=== PATIENT | female | born 1980 | race Hispanic/Latino ===

== ENCOUNTER 2022-06-07 10:56 | Observation (INO) | payer BC, SELFPAY ==
[2022-06-07] VITALS (21 sets, daily range): BP systolic 106–119; BP diastolic 43–70; PULSE 62–82; RESP 14–20; TEMP 35.9–36.6; O2SAT 100; BMI 23.8
--- NOTE | ~2022-06-07 | US_ITS ---
EXAMINATION: US pelvic complete DATE: 06/08/2022 11:08 INDICATION: Metrorrhagia TECHNIQUE: Multiple transabdominal sonographic images of the pelvis were obtained. COMPARISON: None. FINDINGS: The alexis flexed uterus measures 9.3 x 5.0 x 5.1 cm. The endometrial complex measures 3-4 mm in thi ckness. The right ovary measures 3.3 x 2.5 x 2.2 cm cm. 9 mm anechoic right adnexal cyst/follicle. Th e left ovary is not clearly visualized. There is however 4.3 x 3.7 x 3.7 cm anechoic cyst at the left adnexa. Vascular flow identified in both the right ovary and at the periphery of the presumptive lef t ovarian cyst. There is no free fluid in the pelvis. IMPRESSION: 1. Alexis flexed uterus with normal 3-4 mm thick endometrial complex. Reviewed, dictated and finalized at location A.
--- NOTE | ~2022-06-07 | CT_ITS ---
EXAMINATION: CT abdomen pelvis wo con DATE: 06/08/2022 18:27 INDICATION: Right flank pain and hematuria TECHNIQUE: Computed tomography (CT) of the abdomen and pelvis was performed without intravenous contr ast. Automated exposure control and iterative reconstruction technique were employed. The dose-length product was 322.78 mGy-cm. COMPARISON: None FINDINGS: Lung bases are clear. Heart size is normal. No pericardial or pleural effusion. Liver, gallbladder, p ancreas and bilateral adrenal glands are normal. Splenomegaly measuring 15.1 cm in craniocaudal lengt h. Left kidney is normal. A couple nonobstructing 1 mm stones in the mid and lower right kidney. No o ther urolithiasis, hydroureteronephrosis or perinephric/ureteral stranding. Large amount of stool sca ttered throughout the colon. Small bowel and appendix are normal. Bladder is normal. 4.2 cm and 1.5 c m left adnexal cyst. The uterus and right adnexa are unremarkable. No free intraperitoneal gas or flu id. No pathologically enlarged abdominal or pelvic lymphadenopathy. Bones are unremarkable. IMPRESSION: 1. A couple nonobstructing 1 mm right renal stones. No ureteral stones or hydronephrosis. 2. Nonspecific splenomegaly measuring 15.1 cm in maximal length. 3. Couple left adnexal cysts, the larger measuring 4.2 cm. Reviewed, dictated and finalized at location A. IMPRESSION: 1. A couple nonobstructing 1 mm right renal stones. No ureteral stones or hydro nephrosis. 2. Nonspecific splenomegaly measuring 15.1 cm in maximal length. 3. Couple left adnexal cysts, the larger measuring 4.2 cm.
[2022-06-07 11:23] LABS: Alanine Aminotransferase 18 U/L (6-35); Albumin Level 4.7 g/dL (3.5-5.1); Alkaline Phosphatase 70 U/L (38-126); Anion Gap 9 mmol/L (8-16); Aspartate Amino Transferase 19 U/L (14-36); Bilirubin,Total 0.9 mg/dL (0.2-1.3); Blood Urea Nitrogen 11 mg/dL (7-17); Calcium 8.5 mg/dL (8.4-10.2); Carbon Dioxide 23 mmol/L (22-30); Chloride 98 mmol/L (98-107); Estimated CRCL calculation 83 ml/min; Estimated Glomerular Filt Rate > 60; Glucose 269 mg/dL (65-110); Potassium 4.2 mmol/L (3.4-5.0); Sodium 130 mmol/L (137-145)
[2022-06-07 12:20] LABS: Basophils Percent Auto 0.8 % (0.2-1.2); Eosinophils Absolute Auto 0.1 K/mm3 (0-0.3); Eosinophils Percent Auto 1.6 % (0-4.4); Hematocrit 21.8 % (37.0-47.0); Immature Granulocyte Absolute 0.01 K/mm3 (0.00-0.031); Immature Granulocyte Percent A 0.3 % (0-0.5); Immature Platelet Fraction Pct 9.2 % (0.9-11.2); Lymphocytes Absolute Auto 1.43 K/mm3 (0.9-3.2); Lymphocytes Percent Auto 37.5 % (18.3-44.2); Mean Corpuscular HGB Conc 25.2 g/dl (32-36); Mean Corpuscular Hemoglobin 14.7 pg (26-34); Mean Corpuscular Volume 58.4 fl (80-100); Monocytes Absolute Auto 0.2 K/mm3 (0.1-0.6); Monocytes Percent Auto 5.2 % (2.6-8.5); Neutrophils Absolute Auto 2.1 K/mm3 (1.3-6.7); Neutrophils Percent Auto 54.6 % (45.5-73.1); Platelet Count Result 321 k/mm3 (150-375); Red Blood Count 3.73 M/mm3 (4.2-5.4); Red Cell Distribution Width 21.8 % (11.5-14.5)
[2022-06-07 12:23] LABS: Hemoglobin 5.5 g/dL (12.0-15.0)
[2022-06-07 12:24] LABS: White Blood Count 3.8 K/mm3 (4.5-10.0)
[2022-06-07 12:31] LABS: Anisocytosis 3+ (NORMAL); Hypochromasia 3+ (NORMAL); Microcytosis 3+ (NORMAL); Platelet Estimate Adequate (Adequate)
[2022-06-07 12:32] LABS: Ovalocytes 1+ (NORMAL); Schistocytes None Seen (NORMAL)
[2022-06-07 13:54] LABS: Immature Reticulocyte Fraction 15.3 % (3.0-15.9); Reticulocyte Hemoglobin Conten 13.6 pg (28.2-35.7); Reticulocyte Percent 1.61 % (0.7-4.3); Reticulocytes Absolute 0.06 M/mm3 (0.02-0.1)
[2022-06-07 14:18] LABS: Iron < 10 ug/dL (37-170)
[2022-06-07] MEDS: TUBING, BLOOD PLUM PUMP TUBING 1 EACH XX (14:26)
[2022-06-07] MEDS: SODIUM CHLORIDE 0.9% IV 250 ML 30 ML IV CONT (14:26)
[2022-06-07 14:28] LABS: Percent Iron Saturation 2 % (20-50)
--- NOTE | 2022-06-07 14:48 | ED.GENADULT ---
HPI - General Adult General Chief complaint: Recheck/Abnormal Lab/Rx Stated complaint: needs blood transfusion Time Seen by Provider: 06/07/22 13:05 History of Present Illness HPI narrative: Patient is a 42-year-old female who is Yi-speaking that presents to the ER for a blood transfusion. She reports she was told by her PCP that she had abnormal blood work and that she needed transfusion. Hemoglobin here is 5.5. Reports she has history of anemia requiring blood transfusions. She is supposed to be taking iron but has not been taking it. She reports she has heavy menstrual periods with her last one occurring 05/31/2022 and lasting for 5 to 6 days. She has had no syncope. No dizziness. She does have fatigue. Related Data Home Medications Medication Instructions Recorded Confirmed No Home Medications 06/07/22 06/07/22 Allergies Allergy/AdvReac Type Severity Reaction Status Date / Time No Known Allergies Allergy Verified 06/07/22 10:58 Review of Systems Review of Systems: All systems reviewed & are unremarkable except as noted in HPI and below Constitutional: Constitutional: Denies chills, Reports fatigue and Denies fever(s) ENT: Denies nasal congestion and Denies sore throat Cardiovascular: Cardiovascular: Denies chest pain, Denies rapid heart rate and Denies radiating jaw, neck or arm pain Respiratory: Respiratory: Denies cough and Denies dyspnea Genitourinary: Genitourinary: Denies abnormal vaginal bleeding and Denies pelvic pain Neurologic: Denies dizziness and Denies syncope [facility] Family History Family History (Updated 06/07/22 @ 17:48 by Cynthia Ceja LPN) Other Diabetes mellitus Social History Social History Smoking status: Never smoker Second hand tobacco smoke exposure: No Alcohol intake: never Substance use: never Substance use type: does not use Lack of Transportation: No Lack of Food: Never True Current Housing: I Have Housing Concerned About Future Housing: No Difficulty Paying Gas/Electric Bills: No Difficulty Paying for Meds: No Currently Unemployed: No Education: Don't Know Difficulty w/ Childcare or Family Care: No Spiritual care concerns: No Exam Narrative: GENERAL: Well-appearing, well-nourished, and in no acute distress. HEAD: Normocephalic, atraumatic. EYES: PERRL and EOMI. pale conjunctiva ENT: Mucous membranes moist. CHEST: Clear to auscultation. No respiratory distress. HEART: Regular rate and rhythm. Normal peripheral pulses. ABDOMEN: Soft, nontender, nondistended. EXTREMITIES: Normal range of motion. No edema. SKIN: Warm, dry, no rash. NEURO:Alert and oriented x3. PSYCH: Normal mood and affect. Course Course Emergency Course: 2 units of blood ordered. Symptoms felt to be iron deficiency related from chronic blood losses and lack of iron supplementation. She may require further evaluation by gynecology outpatient. Accepted by the hospitalist service. Patient stable. Patient understands treatment plan and lab results and is agreeable. Vital Signs Vital signs: Vital Signs Temperature 97.4 F L 06/07/22 11:00 Pulse Rate 82 06/07/22 11:00 Respiratory Rate 20 06/07/22 11:00 Blood Pressure 119/52 L 06/07/22 11:00 Pulse Oximetry 100 06/07/22 11:00 Oxygen Delivery Room Air 06/07/22 11:00 Temperature 97.5 F L 06/07/22 21:23 Pulse Rate 76 06/07/22 21:23 Respiratory Rate 16 06/07/22 21:23 Blood Pressure 109/62 06/07/22 21:23 Pulse Oximetry 100 06/07/22 21:23 Oxygen Delivery Room Air 06/07/22 18:10 Medical Decision Making Vital Signs Vital Signs: Vital Signs Temperature 97.4 F L 06/07/22 11:00 Pulse Rate 82 06/07/22 11:00 Respiratory Rate 20 06/07/22 11:00 Blood Pressure 119/52 L 06/07/22 11:00 Pulse Oximetry 100 06/07/22 11:00 Oxygen Delivery Room Air 06/07/22 11:00 Temperature 97.5 F L 06/07/22 21:23 Pulse Rate 76 06/07/22
[2022-06-07 14:54] LABS: Ferritin 2.61 ng/mL (6.24-137)
[2022-06-07 15:10] LABS: Folic Acid 11.4 ng/mL (2.76->20)
[2022-06-07 15:18] LABS: Appearance Urine Clear (Clear); Bacteria Urine None Seen /hpf; Bilirubin Urine Negative (Negative); Blood Urine 3+ (Negative); Color Urine Yellow (Yellow); Glucose Urine UA Negative (Negative); Ketones Urine Negative (Negative); Leukocyte Esterase Ur Trace LEU/UL (Negative); Nitrate Urine Negative (Negative); Non Pathogenic Casts 0-2; Protein Urine Negative (Negative); RBC Urine 0-2 /hpf (0-2); Specific Grav Ur 1.005 (1.001-1.035); Squamous Epithelial Cell Urine Few /hpf (Few); Urobilinogen Urine 0.2 mg/dL (<2.0); WBC Urine 0-5 /hpf; pH Urine 6.5 (5.0-9.0)
[2022-06-07 15:29] LABS: Add Urine Microscopic? YES
--- NOTE | 2022-06-07 17:33 | PC.NURSE ---
This patient, Ghazala Mon, was admitted to [facility] Surg Room 310-01. Patient/family oriented to hospital policies and general routines including ID bracelet, bed and alarms, visiting hours, pain management, procedures, bathroom and other care routines, personal items, smoking policy, room service/diet, and visiting hours. Information on how to activate the Rapid Response Team has been discussed. Patient/Family are encouraged to report perceived risks to care and to ask questions if they do not understand what they are told or what they should do.
[2022-06-07 20:08] LABS: Glucose Point of Care 273 mg/dl (65-105)
--- NOTE | 2022-06-07 22:18 | PM.IMHP ---
H&P: HPI History of Present Illness Date/Time: 06/07/22 17:30 Chief Complaint: Low hemoglobin. Narrative: This is a pleasant 42-year-old mainly Uzbek-speaking female who presented to the emergency department via private vehicle for evaluation of low hemoglobin. Patient provides the following history; her daughter helps translate on occasion. The patient has a history of heavy periods dating back many years and had previously been on iron however it does not sound as though she has been taking that on a routine basis. She was previously seen by a smog technician in [place] and was offered hysterectomy however she declined. For the past month or so she has become increasingly more fatigued and tired and the last couple of days she has been feeling lightheaded and dizzy upon standing. She had an appointment to establish care with a new PCP yesterday and she had some labs drawn. Today she was told that her hemoglobin was low and that she needed to come to the ER for transfusion. Hemoglobin/hematocrit on arrival were 5.5 and 21.8% respectively. Her labs were also significant for a random glucose of 273 and she has no known history of diabetes. She denies epistaxis, hematemesis, melena, hematochezia, and hematuria. She denies current vaginal bleeding. No blurry vision, polydipsia, or polyuria. No dysuria. No vaginal discharge. No exertional chest pain or shortness of breath. Review of Systems Review of Systems: Twelve systems were reviewed and are negative except for as per HPI. [facility] Past Medical History Medical History (Updated 06/07/22 @ 22:25 by Yessy Khan PA-C) Iron deficiency anemia Surgical History Surgical History (Updated 06/07/22 @ 22:22 by Yessy Khan PA-C) History of 3 sections History of ovarian cystectomy Family History Family History Other Diabetes mellitus Social History Social History (Updated 06/07/22 @ 22:23 by Yessy Khan PA-C) Social History: Surrogate medical decision maker: Pete Vallejo (spouse) or Jose Vallejo (daughter). Code status: Full code. Smoking status: Never smoker Second hand tobacco smoke exposure: No Alcohol intake: never Substance use: never Substance use type: does not use Lack of Transportation: No Lack of Food: Never True Current Housing: I Have Housing Concerned About Future Housing: No Difficulty Paying Gas/Electric Bills: No Difficulty Paying for Meds: No Currently Unemployed: No Education: Don't Know Difficulty w/ Childcare or Family Care: No Additional living arrangements comments: Lives with family in [place]. 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 Spiritual care concerns: No Meds Home Medications and Allergies Home Medications Medication Instructions Recorded Confirmed Type No Home Medications 06/07/22 06/07/22 History Allergies Allergy/AdvReac Type Severity Reaction Status Date / Time No Known Allergies Allergy Verified 06/07/22 10:58 Vital Signs Vital Signs - 24 hr 06/07/22 11:00 06/07/22 14:18 06/07/22 14:36 Temperature 97.4 F L 97.6 F 97.9 F Pulse Rate 82 66 65 Respiratory Rate 20 14 17 Blood Pressure 119/52 L 114/64 106/66 Pulse Oximetry 100 100 100 Oxygen Delivery Room Air 06/07/22 14:26 06/07/22 14:30 06/07/22 14:31 Temperature Pulse Rate 64 64 65 Respiratory Rate 15 16 16 Blood Pressure 106/66 Pulse Oximetry 100 100 100 Oxygen Delivery 06/07/22 14:45 06/07/22 14:46 06/07/22 15:00 Temperature Pulse Rate 63 63 66 Respiratory Rate 15 14 15 Blood Pressure 109/69 Pulse Oximetry 100 100 100 Oxygen Delivery 06/07/22 15:09 06/07/22 15:15 06/07/22 15:17 Temperature Pulse Rate 70 68 62 Respiratory Rate 17 18 17 Blood Pressure 108/63 108/43 L Pulse Oximetry 100 100 100 Oxygen Delivery 06/07/22 15:31 06/07/22 15:33 06/07/22 16:11
[2022-06-07 23:34] LABS: Hemoglobin A1C 7.5 % (<5.7)
[2022-06-07] MEDS: IRON SUCROSE COMPLEX 500 MG in SODIUM CHLORIDE 0.9% IV 250 ML 78.57 MG IVPB (23:53)
[2022-06-08 05:49] VITALS: BP 115/61; PULSE 65; RESP 16; TEMP 36.6; O2SAT 100
[2022-06-08 06:00] LABS: Hematocrit 26.8 % (37.0-47.0); Hemoglobin 7.5 g/dL (12.0-15.0); Immature Platelet Fraction Pct 9.2 % (0.9-11.2); Mean Corpuscular Hemoglobin 18.3 pg (26-34); Mean Corpuscular Volume 65.5 fl (80-100); Platelet Count Result 266 k/mm3 (150-375); Red Blood Count 4.09 M/mm3 (4.2-5.4); Red Cell Distribution Width 29.2 % (11.5-14.5); White Blood Count 3.8 K/mm3 (4.5-10.0)
[2022-06-08 06:09] LABS: Anion Gap 10 mmol/L (8-16); Blood Urea Nitrogen 9 mg/dL (7-17); Calcium 8.3 mg/dL (8.4-10.2); Carbon Dioxide 22 mmol/L (22-30); Chloride 102 mmol/L (98-107); Estimated CRCL calculation 98 ml/min; Estimated Glomerular Filt Rate > 60; Glucose 245 mg/dL (65-110); Magnesium 2.1 mg/dL (1.6-2.3); Potassium 3.8 mmol/L (3.4-5.0); Sodium 134 mmol/L (137-145)
[2022-06-08] MEDS: INSULIN ASPART (*BKC) 100 UNITS/ML SUB-Q ×3 (08:33→17:43)
[2022-06-08 11:37] LABS: Glucose Point of Care 234 mg/dl (65-105)
[2022-06-08 11:38] LABS: Glucose Point of Care 237 mg/dl (65-105)
[2022-06-08] MEDS: metFORMIN HCL 500 MG TABLET PO ×2 (12:31→17:41)
[2022-06-08] MEDS: FERROUS SULFATE 324 MG TABLET PO ×2 (12:31→17:41)
--- NOTE | 2022-06-08 12:38 | PM.IMPN ---
Progress Note: A&P Assessment and Plan (1) Iron deficiency anemia: Code(s): D50.9 - Iron deficiency anemia, unspecified Status: Acute Assessment and Plan: She has symptomatic anemia and reports a history of the same which has thus far been attributed to her heavy periods. Iron studies consistent with iron deficiency. UA showing 3+ blood but no RBC and no evidence of UTI. She was transfused and Hgb up to 7.5. Venofer 500 mg IV x1 ordered. Start iron supplementation. RECOVERY ADVOCATE consulted. Pelvice US pending. Will check CT to exclude kidney stone. (2) New onset type 2 diabetes mellitus: Code(s): E11.9 - Type 2 diabetes mellitus without complications Status: Acute Assessment and Plan: Patient admits that she has DM but is unntreated. A1c 7.5. The patient's blood glucose was reviewed on 06/08 Glucose remains elevated at times. A1c may not be accurate due to the anemia. Continue AccuCheks covering with sliding scale. Hypoglycemia protocol available as needed. Add metformin. Dietary consult (3) Metrorrhagia: Code(s): N92.1 - Excessive and frequent menstruation with irregular cycle Status: Acute Assessment and Plan: Pathology Transcriptionist consulted and appreciate their input. Pelvic US ordered. (4) Suprapubic pain: Code(s): R10.2 - Pelvic and perineal pain Status: Acute Assessment and Plan: Pain now more in the right flank. Will check CT A/P to exclude kidney stone. Also add total CK given the blood but no RBC. No evidence of UTI on urinalysis Subjective Date/time seen: 06/08/22 12:38 Interval history: 42yo female with DM and iron deficiency anemia here for fatigue and anemia. Patient was found to be anemic by routine lab work. Patient is mostly Setswana speaking and her family is in the room to help translate. She does state that she had an ovarian cystectomy in [place] but that no hysterectomy was offered. She does not take iron regularly. She has heavy menses bleeding for about 5-6 days with the heaviest bleeding in the first 2 days requiring 5 pads/day. She has occasional spotting between periods. She has right flank pain but no complaints of dysuria or hematuria. No melena hematochezia. She has never had a colonoscopy. Exam Narrative: AF 97.8 115/61 65 16 100% ra Gen - NARD Chest - CTA bilaterally, nml RR CV - RRR S1/S2 Abd - Soft, NT/ND, Positive BS Back - Rt CVA tenderness. Ext - No pedal edema Neuro - Alert and oriented. Nonfocal exam. Psych - Nml mood and affect Skin - Warm and dry Objective Data Vital Signs Vital Signs: Vital Signs - 24 hr 06/07/22 14:18 06/07/22 14:36 06/07/22 14:26 Temperature 97.6 F 97.9 F Pulse Rate 66 65 64 Respiratory Rate 14 17 15 Blood Pressure 114/64 106/66 Pulse Oximetry 100 100 100 Oxygen Delivery 06/07/22 14:30 06/07/22 14:31 06/07/22 14:45 Temperature Pulse Rate 64 65 63 Respiratory Rate 16 16 15 Blood Pressure 106/66 Pulse Oximetry 100 100 100 Oxygen Delivery 06/07/22 14:46 06/07/22 15:00 06/07/22 15:09 Temperature Pulse Rate 63 66 70 Respiratory Rate 14 15 17 Blood Pressure 109/69 108/63 Pulse Oximetry 100 100 100 Oxygen Delivery 06/07/22 15:15 06/07/22 15:17 06/07/22 15:31 Temperature Pulse Rate 68 62 67 Respiratory Rate 18 17 Blood Pressure 108/43 L 109/70 Pulse Oximetry 100 100 100 Oxygen Delivery 06/07/22 15:33 06/07/22 16:11 06/07/22 17:54 Temperature 96.7 F L Pulse Rate 69 65 69 Respiratory Rate 19 18 Blood Pressure 117/70 Pulse Oximetry 100 100 100 Oxygen Delivery 06/07/22 17:55 06/07/22 18:10 06/07/22 18:10 Temperature 97.2 F L 97.3 F L Pulse Rate 64 65 Respiratory Rate 16 16 Blood Pressure 114/65 113/65 Pulse Oximetry 100 100 Oxygen Delivery Room Air 06/07/22 19:10 06/07/22 20:10 06/07/22 21:23 Temperature 97.1 F L 97.3 F L 97.5 F L Pulse Rate 66 69 76 Respiratory Rate 16 18 16 Blood P
[2022-06-08 14:00] VITALS: BP 116/66; PULSE 64; RESP 20; TEMP 36.6; O2SAT 100
[2022-06-08 14:43] LABS: Creatine Kinase 25 U/L (30-135)
[2022-06-08 16:46] LABS: Glucose Point of Care 216 mg/dl (65-105)
[2022-06-08 20:49] LABS: Glucose Point of Care 166 mg/dl (65-105)
[2022-06-08 21:25] VITALS: BP 112/65; PULSE 75; RESP 14; TEMP 36.2; O2SAT 100
[2022-06-09 05:24] VITALS: BP 96/63; PULSE 63; RESP 14; TEMP 36.1; O2SAT 100
[2022-06-09 05:45] LABS: Basophils Percent Auto 0.4 % (0.2-1.2); Eosinophils Absolute Auto 0.1 K/mm3 (0-0.3); Eosinophils Percent Auto 2.7 % (0-4.4); Hematocrit 29.8 % (37.0-47.0); Hemoglobin 8.1 g/dL (12.0-15.0); Immature Granulocyte Absolute 0.02 K/mm3 (0.00-0.031); Immature Granulocyte Percent A 0.4 % (0-0.5); Immature Platelet Fraction Pct 9.7 % (0.9-11.2); Lymphocytes Absolute Auto 1.76 K/mm3 (0.9-3.2); Lymphocytes Percent Auto 34.1 % (18.3-44.2); Mean Corpuscular HGB Conc 27.2 g/dl (32-36); Mean Corpuscular Hemoglobin 18.2 pg (26-34); Mean Corpuscular Volume 66.8 fl (80-100); Monocytes Absolute Auto 0.4 K/mm3 (0.1-0.6); Monocytes Percent Auto 6.8 % (2.6-8.5); Neutrophils Absolute Auto 2.9 K/mm3 (1.3-6.7); Neutrophils Percent Auto 55.6 % (45.5-73.1); Platelet Count Result 275 k/mm3 (150-375); Red Blood Count 4.46 M/mm3 (4.2-5.4); Red Cell Distribution Width 29.7 % (11.5-14.5); White Blood Count 5.2 K/mm3 (4.5-10.0)
[2022-06-09 05:51] LABS: Anion Gap 9 mmol/L (8-16); Blood Urea Nitrogen 8 mg/dL (7-17); Calcium 8.9 mg/dL (8.4-10.2); Carbon Dioxide 24 mmol/L (22-30); Chloride 102 mmol/L (98-107); Estimated CRCL calculation 98 ml/min; Estimated Glomerular Filt Rate > 60; Glucose 184 mg/dL (65-110); Potassium 3.7 mmol/L (3.4-5.0); Sodium 135 mmol/L (137-145)
[2022-06-09 06:41] LABS: Hypochromasia 2+ (NORMAL); Microcytosis 2+ (NORMAL); Ovalocytes 1+ (NORMAL); Platelet Estimate Adequate (Adequate); Schistocytes None Seen (NORMAL)
[2022-06-09 07:41] LABS: Glucose Point of Care 213 mg/dl (65-105)
[2022-06-09] MEDS: FERROUS SULFATE 324 MG TABLET PO (08:32)
[2022-06-09] MEDS: metFORMIN HCL 500 MG TABLET PO (08:32)
[2022-06-09] MEDS: INSULIN ASPART (*BKC) 100 UNITS/ML SUB-Q ×2 (08:33→12:41)
[2022-06-09 11:41] LABS: Glucose Point of Care 211 mg/dl (65-105)
--- NOTE | 2022-06-09 12:15 | PM.DS ---
DS: Admitting Diagnosis Discharge Date 06/09/22 Admitting Diagnosis Fatigue and low Hgb DS: Discharge Diagnosis Discharge Diagnosis (1) Iron deficiency anemia: Code(s): D50.9 - Iron deficiency anemia, unspecified Status: Acute (2) New onset type 2 diabetes mellitus: Code(s): E11.9 - Type 2 diabetes mellitus without complications Status: Acute (3) Metrorrhagia: Code(s): N92.1 - Excessive and frequent menstruation with irregular cycle Status: Acute (4) Suprapubic pain: Code(s): R10.2 - Pelvic and perineal pain Status: Acute DS: Summary Hospital Course Reason for hospitalization: 42yo female with DM and iron deficiency anemia here for fatigue and anemia. Please see H&P for details. Hospital Course: Patient was found to be anemic by routine lab work.? She had an ovarian cystectomy in [place] but that no hysterectomy was offered.? She does not take iron regularly.? She has heavy menses bleeding for about 5-6 days with the heaviest bleeding in the first 2 days requiring 5 pads/day. She has occasional spotting between periods.? She has symptomatic anemia and reports a history of the same which has thus far been attributed to her heavy periods. Hgb was 5.5. Iron studies consistent with iron deficiency. UA showing 3+ blood but no RBC and no evidence of UTI. She was transfused and Hgb up to 8.1. Venofer 500 mg IV x1 ordered. She was started on iron supplementation. SENIOR DATA QUALITY ANALYST was consulted. Pelvic US showing anteroflexed uterus with normal 3-4mm thick endometrial complex. She was also having right flank pain but no complaints of dysuria or hematuria.? No melena or hematochezia.? She has never had a colonoscopy. CT Abd and Pelvis showing nonobstructing right renal stones and nonspecific splenomegaly. Her flank pain resolved. Possibly passed small kidney stone which could explain the hematuria. 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 Glucose was elevated here. Initially it was thought this was a new diagnosis but patient admits that she has DM but is untreated. A1c was 7.5 but may be falsely low due to anemia. The patient's blood glucose was monitored with AccuCheks covering with sliding scale.? Hypoglycemia protocol was available as needed.? We added metformin. Dietary consulted. She overall did well and was able to be discharged home on 06/09/22 Status at Discharge Cognitive/behavioral status at discharge: Stable Time Spent with Patient Time attestation: Total time spent providing and/or coordinating discharge services: 35 minutes Time spent: Greater than 30 minutes Exam Narrative: AF 97.0 96/63 63 14 100% ra Gen - NARD Chest - CTA bilaterally, nml RR CV - RRR S1/S2 Abd - Soft, NT/ND, Positive BS Ext - No pedal edema Psych - Nml mood and affect Skin - Warm and dry DS: Data Data Completed and Pending Labs on day of discharge: Labs from last 24 hours 06/09/22 06/09/22 06/09/22 11:32 07:18 04:40 WBC 5.2 RBC 4.46 Hgb 8.1 L Hct 29.8 L MCV 66.8 L MCH 18.2 L MCHC 27.2 L RDW 29.7 H Plt Count 275 MPV TNP Immature Gran % (Auto) 0.4 Neut % (Auto) 55.6 Lymph % (Auto) 34.1 Titus % (Auto) 6.8 Eos % (Auto) 2.7 Baso % (Auto) 0.4 Lymph # (Auto) 1.76 Titus # (Auto) 0.4 Eos # (Auto) 0.1 Baso # (Auto) 0.0 Abs Immat Gran (auto) 0.02 Absolute Neuts (auto) 2.9 Absolute Nucleated RBC 0.0 Nucleated RBC % 0.0 Platelet Estimate Adequate % Immature Plt Fraction 9.7 Hypochromasia 2+ Microcytosis 2+ Ovalocytes 1+ Schistocytes None seen Sodium 135 L Potassium 3.7 Chloride 102 Carbon Dioxide 24 Anion Gap 9 BUN 8 Creatinine 0.50 L Estim Creat Clear Calc 98 Estimated GFR > 60 Glucose 184 H POC Capillary Glucose 211 H 213 H Calcium 8.9 Total Creatine Kinase 06/08/22 06/08/22 06/08/22 20:21 16:31 05:37 WBC RBC Hgb
== END 2022-06-09 13:10 | disposition home or self-care (01) ==
LOC: ANHED 13:19 → ANH3MEDSUR 21:28
PROVIDERS: Emergency Medicine; Physician Assistant; Admitting Provider Internal Medicine; Emergency Provider Emergency Medicine; Visit Provider Internal Medicine
DX: D50.9 Iron deficiency anemia, unspecified (principal); E11.9 Type 2 diabetes mellitus without complications; N92.1 Excessive and frequent menstruation with irregular cycle; R10.2 Pelvic and perineal pain; N20.0 Calculus of kidney; R16.1 Splenomegaly, not elsewhere classified; N83.8 Other noninflammatory disorders of ovary, fallopian tube and broad ligament
CPT/HCPCS: 36415; 36430; 74176; 76856; 80048; 80053; 81001; 82550; 82607; 82728; 82746; 82948; 83036; 83540; 83550; 83735; 84443; 85025; 85027; 85046; 85055; 86850; 86900; 86901; 86920; 96365; 99285; A9270; G0378; J1756; J1815; J7050; P9016

== ENCOUNTER 2023-11-07 17:37 | Inpatient (IN) | payer SELFPAY ==
--- NOTE | ~2023-11-07 | CT_ITS ---
EXAMINATION: CT abdomen pelvis w con DATE: 11/07/2023 23:23 INDICATION: ab pain TECHNIQUE: Computed tomography (CT) of the abdomen and pelvis was performed with 100 mL Omnipaque-350 intravenous contrast. Automated exposure control and iterative reconstruction technique were employe d. The dose-length product was 327.87 mGy-cm. COMPARISON: 06/08/2022. FINDINGS: Lower thorax: Unremarkable Liver: Normal. Biliary/Gallbladder: Gallbladder is normal. No bile duct dilation. Pancreas: No mass or duct dilation. Spleen: Normal. Adrenals:No mass. Kidneys: No suspicious mass, obstructing stone, or hydronephrosis. GI tract: Mild distal esophageal and gastric wall edema. No small or large bowel dilation. Normal eloisa endix. Mesentery/Peritoneum: No ascites, mass, or free air. Retroperitoneum: No mass. Pelvis: Bladder wall thickening. Urothelial enhancement on the left up to the level of the renal pelv is. Multiple left ovarian cysts measuring up to 4.7 cm. Normal right ovary. Physiologic free fluid in the pelvis. 2.6 cm soft tissue density in the deep pelvis, may represent an exophytic fibroid. Soft Tissues: Soft tissues and body wall unremarkable. Bones: No acute osseous finding. IMPRESSION: Mild esophagitis/gastritis. Likely cystitis with possible ascending infection on the left. Multiple left ovarian cyst measuring up to 4.7 cm. 2.6 cm tissue density in the deep pelvis, likely representing an exophytic fibroid. Reviewed, dictated and finalized at location K. IMPRESSION: Mild esophagitis/gastritis. Likely cystitis with possible ascending infection on the left. Multiple left ovarian cyst measuring up to 4.7 cm. 2.6 cm tissue density in the deep pelvis, likely representing an exophytic fibr oid.
[2023-11-07 17:39] VITALS: BP 109/88; PULSE 93; RESP 20; TEMP 36.4; O2SAT 97
--- NOTE | 2023-11-07 19:50 | ED.GENADULT ---
HPI - General Adult General Chief complaint: Nausea/Vomiting/Diarrhea <Javier Norris MD - Last Filed: 11/08/23 10:51> Stated complaint: n/v, epigastric pain <Javier Norris MD - Last Filed: 11/08/23 10:51> Time Seen by Provider: 11/07/23 19:29 <Javier Norris MD - Last Filed: 11/08/23 10:51> History of Present Illness HPI narrative: 33-year-old female presented emergency department for evaluation for midline epigastric pain. Patient states the pain started yesterday. Patient describes associated nausea without vomiting. Patient states the pain does radiate to her back. Patient denies any prior history of gallbladder disease. Patient states she is not a heavy drinker. Patient is diabetic and son states that she does drink many sodas a day. Patient is Croatian-speaking and patient's son is translating. He prefers not to use the translation services. <Javier Norris MD - Last Filed: 11/08/23 10:51> Related Data Home medications: Home Medications Medication Instructions Recorded Confirmed cefdinir 300 mg capsule 300 mg PO Q12H 11/08/23 11/08/23 <Javier Norris MD - Last Filed: 11/08/23 10:51> Allergies/adverse reactions: Allergies Allergy/AdvReac Type Severity Reaction Status Date / Time No Known Allergies Allergy Verified 06/07/22 10:58 <Javier Norris MD - Last Filed: 11/08/23 10:51> Review of Systems Review of Systems: All systems reviewed & are unremarkable except as noted in HPI and below <Javier Norris MD - Last Filed: 11/08/23 10:51> [facility] Past Medical History Medical History: Medical History (Updated 11/08/23 @ 02:05 by Moshe Staples PA-C) Iron deficiency anemia <Javier Norris MD - Last Filed: 11/08/23 10:51> Surgical History Surgical History: Surgical History (Updated 06/07/22 @ 22:22 by Yessy Khan PA-C) History of 3 sections History of ovarian cystectomy <Javier Norris MD - Last Filed: 11/08/23 10:51> Family History Family History: Family History Other Diabetes mellitus <Javier Norris MD - Last Filed: 11/08/23 10:51> Social History Social History: Social History (Updated 06/07/22 @ 22:23 by Yessy Khan PA-C) Social History: Surrogate medical decision maker: Pete Vallejo (spouse) or Jose Vallejo (daughter). Code status: Full code. Smoking status: Never smoker Second hand tobacco smoke exposure: No Alcohol intake: current Substance use: current Substance use type: does not use Do You Feel Safe in your Home?: Yes Lack of Transportation: No Lack of Food: Never True Current Housing: I Have Housing Concerned About Future Housing: No Difficulty Paying Gas/Electric Bills: No Difficulty Paying for Meds: YES Currently Unemployed: No Education: High School Diploma/GED Difficulty w/ Childcare or Family Care: No Additional living arrangements comments: Lives with family in [place]. 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 Spiritual care concerns: No <Javier Norris MD - Last Filed: 11/08/23 10:51> Exam Narrative: APPEARANCE: Well appearing, no pain, no distress, well-nourished. HEAD: normocephalic, atraumatic. EYES: PERRLA/EOMI, conjunctivae clear. NOSE: Normal no drainage. NECK: Supple. No adenopathy, no masses. RESPIRATORY: Airway patent, respirations nonlabored. Clear to auscultation bilaterally, no rales, rhonchi, wheezing. CARDIOVASCULAR: Regular rate and rhythm without murmurs rubs or gallops. ABDOMINAL: Epigastric tenderness to palpation MUSCULOSKELETAL: Moves all extremities. Strength/ROM intact, No edema, No calf tenderness. NEURO: Alert. Cranial nerves II through XII intact. Grossly intact SKIN: Warm, dry. Normal Color <Javier Norris MD - Last Filed: 11/08/23 10:51> Course Course Emergency Course: Assumed ca
[2023-11-07] MEDS: HYDROmorphone HCL INJ (*CRX) 1 MG/ML SYR 0.5 MG IV PUSH (20:59)
[2023-11-07] MEDS: ONDANSETRON INJ 4 MG/2 ML VIAL IV PUSH (21:01)
[2023-11-07] MEDS: SODIUM CHLORIDE 0.9% IV 1,000 ML 999 ML IV CONT ×2 (21:05→22:50)
[2023-11-07 21:14] VITALS: BP 110/59; PULSE 84; RESP 16; TEMP 36.7; O2SAT 100
[2023-11-07 21:26] LABS: Basophils Percent Auto 0.3 % (0.2-1.2); Hematocrit 26.5 % (37.0-47.0); Hemoglobin 7.4 g/dL (12.0-15.0); Immature Granulocyte Absolute 0.05 K/mm3 (0.00-0.031); Immature Granulocyte Percent A 0.3 % (0-0.5); Immature Platelet Fraction Pct 9.7 % (0.9-11.2); Lymphocytes Absolute Auto 0.36 K/mm3 (0.9-3.2); Lymphocytes Percent Auto 2.5 % (18.3-44.2); Mean Corpuscular HGB Conc 27.9 g/dl (32-36); Mean Corpuscular Volume 64.5 fl (80-100); Monocytes Absolute Auto 0.7 K/mm3 (0.1-0.6); Monocytes Percent Auto 4.6 % (2.6-8.5); Neutrophils Absolute Auto 13.2 K/mm3 (1.3-6.7); Neutrophils Percent Auto 92.3 % (45.5-73.1); Platelet Count Result 223 k/mm3 (150-375); Red Blood Count 4.11 M/mm3 (4.2-5.4); Red Cell Distribution Width 20.4 % (11.5-14.5); White Blood Count 14.3 K/mm3 (4.5-10.0)
[2023-11-07 21:35] LABS: Alanine Aminotransferase 20 U/L (6-35); Albumin Level 4.8 g/dL (3.5-5.1); Alkaline Phosphatase 117 U/L (38-126); Anion Gap 17 mmol/L (4-12); Aspartate Amino Transferase 22 U/L (14-36); Bilirubin,Total 1.6 mg/dL (0.2-1.3); Blood Urea Nitrogen 13 mg/dL (7-17); Calcium 9.5 mg/dL (8.4-10.2); Carbon Dioxide 17 mmol/L (22-30); Chloride 102 mmol/L (98-107); Estimated Glomerular Filt Rate > 60; Glucose 313 mg/dL (65-110); Lipase 61 U/L (23-300); Potassium 3.4 mmol/L (3.4-5.0); Sodium 136 mmol/L (137-145)
[2023-11-07 21:46] LABS: Anisocytosis 1+; Hypochromasia 1+; Microcytosis 1+ (NORMAL); Platelet Estimate Adequate (Adequate); Poikilocytosis 1+
[2023-11-07 21:47] LABS: Schistocytes None Seen
[2023-11-07 21:54] LABS: Add Urine Microscopic? YES; Appearance Urine Turbid (Clear); Bacteria Urine 4+ /hpf; Bilirubin Urine Negative (Negative); Blood Urine 2+ (Negative); Color Urine Yellow (Yellow); Glucose Urine UA 3+ mg/dL (Negative); Ketones Urine 4+ mg/dL (Negative); Leukocyte Esterase Ur 2+ LEU/UL (Negative); Nitrate Urine Positive (Negative); Non Pathogenic Casts 0-2; Protein Urine 1+ mg/dL (Negative); Specific Grav Ur 1.025 (1.001-1.035); Squamous Epithelial Cell Urine None Seen /hpf (Few); Urobilinogen Urine 0.2 mg/dL (<2.0); WBC Urine >100 /hpf (0-3); pH Urine 6.5 (5.0-9.0)
[2023-11-07 22:59] VITALS: BP 128/66; PULSE 82; RESP 16; O2SAT 100
[2023-11-08] VITALS (11 sets, daily range): BP systolic 95–140; BP diastolic 58–83; PULSE 70–94; RESP 14–22; TEMP 36.3–37.1; O2SAT 98–100
[2023-11-08] MEDS: PANTOPRAZOLE SODIUM IV 40 MG VIAL IV PUSH ×3 (00:30→21:04)
[2023-11-08 00:48] LABS: Anion Gap 13 mmol/L (4-12); Blood Urea Nitrogen 10 mg/dL (7-17); Calcium 8.4 mg/dL (8.4-10.2); Carbon Dioxide 17 mmol/L (22-30); Chloride 108 mmol/L (98-107); Estimated Glomerular Filt Rate > 60; Glucose 270 mg/dL (65-110); Potassium 3.8 mmol/L (3.4-5.0); Sodium 138 mmol/L (137-145)
[2023-11-08] MEDS: INSULIN HUMAN REGULAR (*BKC) 100 UNITS/ML 6 UNITS IV PUSH (01:26)
[2023-11-08] MEDS: LACTATED RINGERS 1,000 ML 999 ML IV CONT (01:26)
[2023-11-08 01:41] LABS: Beta-Hydroxybutyrate/Acetoacetate 0.55 mmol/L (0.02-0.27)
[2023-11-08] MEDS: HYDROmorphone HCL INJ (*CRX) 1 MG/ML SYR 0.5 MG IV PUSH (03:59)
[2023-11-08] MEDS: ONDANSETRON INJ 4 MG/2 ML VIAL IV PUSH ×4 (04:00→21:03)
[2023-11-08] MEDS: IRON SUCROSE COMPLEX 400 MG, IRON SUCROSE COMPLEX 100 MG in SODIUM CHLORIDE 0.9% IV 250 ML 78.57 MG IVPB (04:06)
--- NOTE | 2023-11-08 04:15 | ADMGEN ---
This patient, Ghazala Mon, was admitted to [facility] Room 330-02. Patient/family oriented to hospital policies and general routines including ID bracelet, bed and alarms, visiting hours, pain management, procedures, bathroom and other care routines, personal items, smoking policy, room service/diet, and visiting hours. Information on how to activate the Rapid Response Team has been discussed. Patient/Family are encouraged to report perceived risks to care and to ask questions if they do not understand what they are told or what they should do.
[2023-11-08] MEDS: PROMETHAZINE HCL 25 MG/ML AMPUL IM ×2 (06:40→17:20)
[2023-11-08 07:21] LABS: Hemoglobin A1C 10.9 % (<5.7)
[2023-11-08 07:23] LABS: Basophils Percent Auto 0.2 % (0.2-1.2); Hematocrit 23.1 % (37.0-47.0); Immature Granulocyte Absolute 0.15 K/mm3 (0.00-0.031); Immature Granulocyte Percent A 0.9 % (0-0.5); Immature Platelet Fraction Pct 8.4 % (0.9-11.2); Lymphocytes Absolute Auto 0.22 K/mm3 (0.9-3.2); Lymphocytes Percent Auto 1.3 % (18.3-44.2); Mean Corpuscular HGB Conc 27.7 g/dl (32-36); Mean Corpuscular Hemoglobin 18.1 pg (26-34); Mean Corpuscular Volume 65.3 fl (80-100); Monocytes Absolute Auto 0.3 K/mm3 (0.1-0.6); Monocytes Percent Auto 2.1 % (2.6-8.5); Neutrophils Absolute Auto 15.8 K/mm3 (1.3-6.7); Neutrophils Percent Auto 95.5 % (45.5-73.1); Platelet Count Result 185 k/mm3 (150-375); Red Blood Count 3.54 M/mm3 (4.2-5.4); Red Cell Distribution Width 20.3 % (11.5-14.5); White Blood Count 16.6 K/mm3 (4.5-10.0)
[2023-11-08 07:30] LABS: Anion Gap 13 mmol/L (4-12); Blood Urea Nitrogen 9 mg/dL (7-17); Calcium 8.3 mg/dL (8.4-10.2); Carbon Dioxide 18 mmol/L (22-30); Chloride 107 mmol/L (98-107); Estimated Glomerular Filt Rate > 60; Glucose 308 mg/dL (65-110); Potassium 2.9 mmol/L (3.4-5.0); Sodium 138 mmol/L (137-145)
[2023-11-08 07:39] LABS: Hemoglobin 6.4 g/dL (12.0-15.0)
[2023-11-08 07:51] LABS: Hypochromasia 1+; Microcytosis 2+ (NORMAL); Platelet Estimate Adequate (Adequate)
[2023-11-08 07:52] LABS: Polychromasia 1+
[2023-11-08 07:53] LABS: Poikilocytosis 1+; Schistocytes None Seen
--- NOTE | 2023-11-08 08:05 | PC.NURSE ---
Provider here on rounds. Notified of Hbg rtesi;ts/ Orders received.
--- NOTE | 2023-11-08 08:14 | PM.IMHP ---
H&P: HPI History of Present Illness Date/Time: 11/08/23 08:14 Chief Complaint: Abdominal pain Narrative: 42-year-old mainly Bulgarian-speaking female who presented to the emergency department via private vehicle for evaluation of abdomen pain . Patient reports the abdominal pain started 2 days ago. Patient denies any diarrhea or constipation or bloody stool. Initially patient thought the pain is due to some stomach bug but later she was not able to tolerate the pain which was associated with nausea and vomiting. Today morning her hemoglobin was 6.4 and initiated 1U PRBC. The patient has a history of heavy periods dating back many years and had previously been on iron however it does not sound as though she has been taking that on a routine basis. She was previously seen by a sewer maintenance supervisor in [place] and was offered hysterectomy however she declined. Patient reports of having regular periods with heavy bleeding lasting 5-6 days. She denies epistaxis, hematemesis, melena, hematochezia, and hematuria. She denies current vaginal bleeding. No blurry vision, polydipsia, or polyuria. No dysuria. No vaginal discharge. No exertional chest pain or shortness of breath. Review of Systems Review of Systems: All systems reviewed & are unremarkable except as noted in HPI and below PMFSH Past Medical History Medical History (Updated 11/08/23 @ 16:17 by John Pate MD) Iron deficiency anemia Surgical History Surgical History (Updated 06/07/22 @ 22:22 by Yessy Khan PA-C) History of 3 sections History of ovarian cystectomy Family History Family History Other Diabetes mellitus Social History Social History (Updated 06/07/22 @ 22:23 by Yessy Khan PA-C) Social History: Surrogate medical decision maker: Pete Penas (spouse) or Jose Vallejo (daughter). Code status: Full code. Smoking status: Never smoker Second hand tobacco smoke exposure: No Alcohol intake: current Substance use: current Substance use type: does not use Do You Feel Safe in your Home?: Yes Lack of Transportation: No Lack of Food: Never True Current Housing: I Have Housing Concerned About Future Housing: No Difficulty Paying Gas/Electric Bills: No Difficulty Paying for Meds: YES Currently Unemployed: No Education: High School Diploma/GED Difficulty w/ Childcare or Family Care: No Additional living arrangements comments: Lives with family in [place]. 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 Spiritual care concerns: No Meds Home Medications and Allergies Home Medications Medication Instructions Recorded Confirmed Type cefdinir 300 mg capsule 300 mg PO Q12H 11/08/23 11/08/23 History Allergies Allergy/AdvReac Type Severity Reaction Status Date / Time No Known Allergies Allergy Verified 06/07/22 10:58 Vital Signs Vital Signs - 24 hr 11/07/23 17:39 11/07/23 21:14 11/07/23 22:59 Temperature 97.6 F 98.0 F Pulse Rate 93 84 82 Respiratory Rate 20 16 16 Blood Pressure 109/88 110/59 L 128/66 Pulse Oximetry 97 100 100 Oxygen Delivery Room Air 11/08/23 03:45 11/08/23 04:31 11/08/23 06:00 Temperature 97.8 F 98.4 F Pulse Rate 94 90 Respiratory Rate 22 H 18 Blood Pressure 140/83 Pulse Oximetry 100 100 Oxygen Delivery Room Air Exam Narrative: APPEARANCE: Well appearing, no pain, no distress, well-nourished. HEAD: normocephalic, atraumatic. EYES: PERRLA/EOMI, conjunctivae clear. NOSE: Normal no drainage. NECK: Supple. No adenopathy, no masses. RESPIRATORY: Airway patent, respirations nonlabored. Clear to auscultation bilaterally, no rales, rhonchi, wheezing. CARDIOVASCULAR: Regular rate and rhythm without murmurs rubs or gallops. ABDOMINAL: Epigastric tenderness to palpation MUSCULOSKELETAL: Moves all extremities. Strength/ROM intact, No edema, No calf tenderness. NEURO:
[2023-11-08] MEDS: BELLADONNA ALK/PHENOB ELIX 10 ML, MAG HYDROX/ALUMINUM HYD/SIMETH 30 ML, LIDOCAINE HCL 2... PO ×2 (09:34→17:27)
[2023-11-08] MEDS: POTASSIUM CHLORIDE INJ 40 MEQ in SODIUM CHLORIDE 0.9% IV 500 ML 130 MEQ IVPB (09:42)
[2023-11-08] MEDS: HYDROmorphone HCL INJ (*CRX) 1 MG/ML SYR IV PUSH ×2 (09:46→17:32)
[2023-11-08 12:13] LABS: Glucose Point of Care 302 mg/dl (65-105)
[2023-11-08] MEDS: SODIUM CHLORIDE 0.9% IV 250 ML 30 ML IV CONT (15:27)
[2023-11-08 16:29] LABS: Glucose Point of Care 250 mg/dl (65-105)
[2023-11-08 19:20] LABS: Hematocrit 25.3 % (37.0-47.0); Hemoglobin 7.2 g/dL (12.0-15.0)
[2023-11-08 19:47] LABS: Glucose Point of Care 268 mg/dl (65-105)
[2023-11-08] MEDS: LACTATED RINGERS 1,000 ML 150 ML IV CONT (21:02)
[2023-11-09 05:27] VITALS: BP 120/69; PULSE 74; RESP 16; TEMP 36.3; O2SAT 100
[2023-11-09] MEDS: ONDANSETRON INJ 4 MG/2 ML VIAL IV PUSH ×2 (05:32→10:12)
[2023-11-09] MEDS: LACTATED RINGERS 1,000 ML 150 ML IV CONT (05:32)
[2023-11-09 06:55] LABS: Hematocrit 25.6 % (37.0-47.0); Hemoglobin 7.1 g/dL (12.0-15.0); Immature Platelet Fraction Pct 9.6 % (0.9-11.2); Mean Corpuscular HGB Conc 27.7 g/dl (32-36); Mean Corpuscular Hemoglobin 19.3 pg (26-34); Mean Corpuscular Volume 69.6 fl (80-100); Platelet Count Result 184 k/mm3 (150-375); Red Blood Count 3.68 M/mm3 (4.2-5.4); Red Cell Distribution Width 21.8 % (11.5-14.5); White Blood Count 8.2 K/mm3 (4.5-10.0)
[2023-11-09 07:07] LABS: Alanine Aminotransferase 15 U/L (6-35); Albumin Level 3.5 g/dL (3.5-5.1); Alkaline Phosphatase 86 U/L (38-126); Anion Gap 8 mmol/L (4-12); Aspartate Amino Transferase 17 U/L (14-36); Bilirubin,Total 0.6 mg/dL (0.2-1.3); Blood Urea Nitrogen 11 mg/dL (7-17); Calcium 8.6 mg/dL (8.4-10.2); Carbon Dioxide 21 mmol/L (22-30); Chloride 111 mmol/L (98-107); Estimated Glomerular Filt Rate > 60; Glucose 199 mg/dL (65-110); Potassium 3.3 mmol/L (3.4-5.0); Sodium 140 mmol/L (137-145)
[2023-11-09 07:27] LABS: Glucose Point of Care 198 mg/dl (65-105)
[2023-11-09] MEDS: PANTOPRAZOLE SODIUM IV 40 MG VIAL IV PUSH ×2 (08:12→21:22)
--- NOTE | 2023-11-09 09:22 | PM.IMPN ---
Progress Note: A&P Assessment and Plan (1) Hyperglycemia: Code(s): R73.9 - Hyperglycemia, unspecified Status: Acute Assessment and Plan: Hold metformin Moderate sliding scale Hypoglycemia protocol Ordered HbA1c (2) Metrorrhagia: Code(s): N92.1 - Excessive and frequent menstruation with irregular cycle Status: Acute (3) Iron deficiency anemia: Code(s): D50.9 - Iron deficiency anemia, unspecified Status: Acute Assessment and Plan: Possibly due to bleeding from fibroid mechanical design engineer products consult and appreciate recommendation Received iron infusion on previous admission Today received 1 unit of packed RBC 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 She will need follow up as outpatient to schedule hysteroscopy with D&C. CT scan with exophytic fibroid and left ovarian cysts. Prior u/s with no fibroids seen 1 year ago. If she gets another cycle before work up, we can use oral TXA for 5 days. Once GI work up completed and dc home, will see in office to schedule. (4) Anemia: Code(s): D64.9 - Anemia, unspecified Status: Acute Assessment and Plan: Transfused 1 unit of packed RBC Trend hemoglobin hematocrit Consulted ob.mechanical design engineer products for fibroids Ordered anemia panel including LDH and haptoglobin vitamin B12 and folate (5) Gastritis: Code(s): K29.70 - Gastritis, unspecified, without bleeding Status: Acute Assessment and Plan: Currently on PPI and GI cocktail Abdomen and pelvis CT shows mild esophagitis/gastritis. Likely cystitis with possible ascending infection on the left. Multiple left ovarian cyst measuring 4.7 cm. 2.6 cm tissue density in the deep pelvis likely representing fibroid Ordered FOBT Consult GI (6) Cystitis: Code(s): N30.90 - Cystitis, unspecified without hematuria Status: Acute Assessment and Plan: Reviewed urinalysis Pending urine culture Continue ceftriaxone Abdomen and pelvis CT shows mild esophagitis/gastritis. Likely cystitis with possible ascending infection on the left. Multiple left ovarian cyst measuring 4.7 cm. 2.6 cm tissue density in the deep pelvis likely representing fibroid Subjective Date/time seen: 11/09/23 09:22 Interval history: Patient currently denies any nausea vomiting or abdominal pain. Will start the clear liquid diet and advanced as tolerated. The patient hemoglobin is 7.1. We will repeat the H&H around 1:00 p.m. Potassium was replaced. Repeat hemoglobin is 7.4. Pending Gastroenterology evaluation. OB Gynecology advised to follow-up the patient is an outpatient for scheduled hysteroscopy with D&C. Discussed the case with OB Gynecology who believes the bleeding is not from the exophytic fibroid. Late in the afternoon nurse called about again nausea and vomiting. After receiving Dilaudid patient was able to rest. Advice to give 1 dose of Phenergan if patient complains of nausea and vomiting again. Review of Systems Review of Systems: All systems reviewed & are unremarkable except as noted in HPI and below Exam Narrative: APPEARANCE: Well appearing, no pain, no distress, well-nourished. HEAD: normocephalic, atraumatic. EYES: PERRLA/EOMI, conjunctivae clear. NOSE: Normal no drainage. NECK: Supple. No adenopathy, no masses. RESPIRATORY: Airway patent, respirations nonlabored. Clear to auscultation bilaterally, no rales, rhonchi, wheezing. CARDIOVASCULAR: Regular rate and rhythm without murmurs rubs or gallops. ABDOMINAL: Epigastric tenderness to palpation MUSCULOSKELETAL: Moves all extremities. Strength/ROM intact, No edema, No calf tenderness. NEURO: Alert. Cranial nerves II through XII intact. Grossly intact SKIN: Warm, dry. Normal Color Objective Data Vital Signs Vital Signs: Vital Signs - 24 hr 11/08/23 14:08 11/08/23 15:17 11/08/23 15:31 Temperature 98.1 F 98.7 F 97.3 F L Pulse Rate 71 71 76 Respiratory Rate 16 16 18 Blood Pressure 110/64 95/58 L 118/68 Pulse Oxim
--- NOTE | 2023-11-09 09:56 | WPDCN ---
Assessment and Plan Assessment and plan (1) Menorrhagia: Code(s): N92.0 - Excessive and frequent menstruation with regular cycle Status: Acute Assessment and Plan: Chronic problem resulting in anemia. She will need follow up as outpatient to schedule hysteroscopy with D&C. CT scan with exophytic fibroid and left ovarian cysts. Prior u/s with no fibroids seen 1 year ago. If she gets another cycle before work up, we can use oral TXA for 5 days. Once GI work up completed and dc home, will see in office to schedule. HPI Data of Consult Date/Time: 11/09/23 09:56 Requesting Physician: Nisha Alvarez DO Primary Care Provider: PRICING SUPERVISOR PHYSICIAN Consult Narrative Narrative: Ghazala Mon is a 43 year old with chronic anemia admitted for abdominal pain and anemia. Patient not currently on cycle. Her cycles are monthly for 5 days but bleeds tampon and pad q 1 hour for several days. Has had prior surgery to remove either a cyst or fibroids (patient unsure) in [place]. Last year patient seen for same and was transfused and followed up in [place] and they wanted to do hysterectomy and she declined and did not follow up. Daughter translating for history. Informed can get official planer setup operator if needed or wanted and declined. [facility] Past Medical History Medical History (Updated 11/09/23 @ 10:01 by Brittani Maldonado MD) Iron deficiency anemia Surgical History Surgical History (Updated 11/09/23 @ 10:00 by Brittani Maldonado MD) History of 3 sections History of ovarian cystectomy Or Myomectomy-in [place] Family History Family History Other Diabetes mellitus Social History Social History (Updated 06/07/22 @ 22:23 by Yessy Khan PA-C) Social History: Surrogate medical decision maker: Pete Yoni (spouse) or Jose Vallejo (daughter). Code status: Full code. Smoking status: Never smoker Second hand tobacco smoke exposure: No Alcohol intake: current Substance use: current Substance use type: does not use Do You Feel Safe in your Home?: Yes Lack of Transportation: No Lack of Food: Never True Current Housing: I Have Housing Concerned About Future Housing: No Difficulty Paying Gas/Electric Bills: No Difficulty Paying for Meds: YES Currently Unemployed: No Education: High School Diploma/GED Difficulty w/ Childcare or Family Care: No Additional living arrangements comments: Lives with family in [place]. 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 Spiritual care concerns: No Meds Home Medications and Allergies Home Medications Medication Instructions Recorded Confirmed Type cefdinir 300 mg capsule 300 mg PO Q12H 11/08/23 11/08/23 History Allergies Allergy/AdvReac Type Severity Reaction Status Date / Time No Known Allergies Allergy Verified 06/07/22 10:58 Vital Signs Vital Signs - 24 hr 11/08/23 14:08 11/08/23 15:17 11/08/23 15:31 Temperature 98.1 F 98.7 F 97.3 F L Pulse Rate 71 71 76 Respiratory Rate 16 16 18 Blood Pressure 110/64 95/58 L 118/68 Pulse Oximetry 100 100 98 11/08/23 16:15 11/08/23 17:15 11/08/23 17:32 Temperature 97.9 F 98.6 F 98.3 F Pulse Rate 77 78 70 Respiratory Rate 16 17 18 Blood Pressure 120/67 138/77 128/68 Pulse Oximetry 100 100 98 11/08/23 18:14 11/08/23 19:50 11/09/23 05:27 Temperature 98.3 F 97.6 F 97.4 F L Pulse Rate 70 76 74 Respiratory Rate 16 14 16 Blood Pressure 126/70 112/60 120/69 Pulse Oximetry 98 98 100 Exam Const: General: ill appearing and uncomfortable Orientation/consciousness: patient oriented x3 Resp: Effort & Inspection: normal respiratory effort GI: GI Palp: Yes abdominal tenderness and Yes Soft to palpation Results Labs 11/09/23 06:25 11/09/23 06:25 Labs: Short CBC 11/08/23 11/09/23 Range/Units 19:10 06:25 WBC
--- NOTE | 2023-11-09 09:58 | PC.NURSE ---
Patient resting comfortably and daugher is present at bedside. No complaints of pain or nausea with assessment. IV infusing. Questions and concerns addressed. Rounded with MD mid morning. Lab work ordered verified with MD.
[2023-11-09] MEDS: POTASSIUM CHLORIDE INJ 10 MEQ in DEXTROSE 5%/0.45% SOD CHL 1,000 ML 100 MEQ IV CONT (10:28)
[2023-11-09 11:27] LABS: Glucose Point of Care 250 mg/dl (65-105)
[2023-11-09] MEDS: INSULIN ASPART (*BKC) 100 UNITS/ML SUB-Q ×2 (12:16→16:39)
[2023-11-09] MEDS: HYDROmorphone HCL INJ (*CRX) 1 MG/ML SYR IV PUSH (12:19)
[2023-11-09 13:12] LABS: Hematocrit 26.8 % (37.0-47.0); Hemoglobin 7.4 g/dL (12.0-15.0)
[2023-11-09 13:19] LABS: Lactate Dehydrogenase 153 U/L (120-246)
[2023-11-09 13:30] LABS: Iron 70 ug/dL (37-170)
[2023-11-09 13:39] LABS: Percent Iron Saturation 21 % (20-50)
[2023-11-09 14:00] VITALS: BP 122/64; PULSE 68; RESP 15; TEMP 36.4; O2SAT 99
[2023-11-09 14:26] LABS: Folic Acid 19.8 ng/mL (2.76->20)
--- NOTE | 2023-11-09 15:43 | PC.NURSE ---
1125: called MD and left message requesting different nausea medication. 1540: UPDATE-spoke with MD about nausea medication. New order entered. Updated MD regarding the effectiveness of pain medication during bout with nausea.
[2023-11-09 16:26] LABS: Glucose Point of Care 306 mg/dl (65-105)
[2023-11-09 19:36] VITALS: PULSE 68; RESP 15; O2SAT 99
[2023-11-09 20:32] LABS: Glucose Point of Care 209 mg/dl (65-105)
[2023-11-09 21:27] VITALS: BP 126/63; PULSE 66; RESP 14; TEMP 36.4; O2SAT 100
[2023-11-10] MEDS: LACTATED RINGERS 1,000 ML 150 ML IV CONT ×3 (03:36→20:42)
[2023-11-10 06:00] VITALS: BP 146/76; PULSE 65; RESP 13; TEMP 36.7; O2SAT 99
[2023-11-10 06:19] LABS: Hematocrit 27.6 % (37.0-47.0); Hemoglobin 7.7 g/dL (12.0-15.0); Immature Platelet Fraction Pct 9.8 % (0.9-11.2); Mean Corpuscular HGB Conc 27.9 g/dl (32-36); Mean Corpuscular Hemoglobin 19.5 pg (26-34); Mean Corpuscular Volume 70.1 fl (80-100); Platelet Count Result 198 k/mm3 (150-375); Red Blood Count 3.94 M/mm3 (4.2-5.4); Red Cell Distribution Width 21.9 % (11.5-14.5); White Blood Count 6.6 K/mm3 (4.5-10.0)
[2023-11-10 06:28] LABS: Alanine Aminotransferase 18 U/L (6-35); Albumin Level 3.8 g/dL (3.5-5.1); Alkaline Phosphatase 100 U/L (38-126); Anion Gap 9 mmol/L (4-12); Aspartate Amino Transferase 20 U/L (14-36); Bilirubin,Total 0.6 mg/dL (0.2-1.3); Blood Urea Nitrogen 8 mg/dL (7-17); Calcium 8.4 mg/dL (8.4-10.2); Carbon Dioxide 23 mmol/L (22-30); Chloride 104 mmol/L (98-107); Estimated Glomerular Filt Rate > 60; Glucose 203 mg/dL (65-110); Sodium 136 mmol/L (137-145)
[2023-11-10] MEDS: HYDROmorphone HCL INJ (*CRX) 1 MG/ML SYR IV PUSH ×2 (07:13→18:45)
[2023-11-10] MEDS: ONDANSETRON INJ 4 MG/2 ML VIAL IV PUSH ×2 (07:13→18:45)
[2023-11-10 07:53] LABS: Glucose Point of Care 236 mg/dl (65-105)
--- NOTE | 2023-11-10 08:50 | PM.IMPN ---
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 She will need follow up as outpatient to schedule hysteroscopy with D&C. CT scan with exophytic fibroid and left ovarian cysts. Prior u/s with no fibroids seen 1 year ago. If she gets another cycle before work up, we can use oral TXA for 5 days. Once GI work up completed and dc home, will see in office to schedule. (4) Anemia: Code(s): D64.9 - Anemia, unspecified Status: Acute Assessment and Plan: Transfused 1 unit of packed RBC Trend hemoglobin hematocrit Consulted ob.research programmer for fibroids Ordered anemia panel including LDH and haptoglobin vitamin B12 and folate (5) Gastritis: Code(s): K29.70 - Gastritis, unspecified, without bleeding Status: Acute Assessment and Plan: Currently on PPI and GI cocktail Abdomen and pelvis CT shows mild esophagitis/gastritis. Likely cystitis with possible ascending infection on the left. Multiple left ovarian cyst measuring 4.7 cm. 2.6 cm tissue density in the deep pelvis likely representing fibroid Ordered FOBT Consult GI (6) Cystitis: Code(s): N30.90 - Cystitis, unspecified without hematuria Status: Acute Assessment and Plan: Reviewed urinalysis Pending urine culture Continue ceftriaxone Abdomen and pelvis CT shows mild esophagitis/gastritis. Likely cystitis with possible ascending infection on the left. Multiple left ovarian cyst measuring 4.7 cm. 2.6 cm tissue density in the deep pelvis likely representing fibroid Subjective Date/time seen: 11/10/23 08:50 Interval history: Patient still complains of abdominal pain, nausea and vomiting. Pending GI evaluation for possible endoscopy and colonoscopy. Patient received 1 unit of PRBC on . Review of Systems Review of Systems: All systems reviewed & are unremarkable except as noted in HPI and below Exam Narrative: APPEARANCE: Well appearing, no pain, no distress, well-nourished. HEAD: normocephalic, atraumatic. EYES: PERRLA/EOMI, conjunctivae clear. NOSE: Normal no drainage. NECK: Supple. No adenopathy, no masses. RESPIRATORY: Airway patent, respirations nonlabored. Clear to auscultation bilaterally, no rales, rhonchi, wheezing. CARDIOVASCULAR: Regular rate and rhythm without murmurs rubs or gallops. ABDOMINAL: Epigastric tenderness to palpation MUSCULOSKELETAL: Moves all extremities. Strength/ROM intact, No edema, No calf tenderness. NEURO: Alert. Cranial nerves II through XII intact. Grossly intact SKIN: Warm, dry. Normal Color Objective Data Vital Signs Vital Signs: Vital Signs - 24 hr 11/09/23 14:00 11/09/23 19:36 11/09/23 21:27 Temperature 97.6 F 97.6 F Pulse Rate 68 68 66 Respiratory Rate 15 15 14 Blood Pressure 122/64 126/63 Pulse Oximetry 99 99 100 Oxygen Delivery Room Air 11/10/23 06:00 Temperature 98.1 F Pulse Rate 65 Respiratory Rate 13 Blood Pressure 146/76 H Pulse Oximetry 99 Oxygen Delivery Intake/Output Intake/Output: Intake & Output 11/07/23 11/08/23 11/09/23 11/10/23 23:59 23:59 23:59 23:59 Intake Total 2049 1518 2225 1105 Balance 2049 1518 2225 1105 Meds/Results Medications: Active Medications Generic Name Dose Route Start Last Admin Trade Name Freq PRN Reason Stop Dose Admin Dextrose 12.5 gm 11/08/23 01:04 Dex
[2023-11-10] MEDS: INSULIN ASPART (*BKC) 100 UNITS/ML SUB-Q ×2 (09:06→12:25)
[2023-11-10] MEDS: POTASSIUM CHLORIDE INJ 40 MEQ in SODIUM CHLORIDE 0.9% IV 500 ML 130 MEQ IVPB (09:06)
[2023-11-10] MEDS: PANTOPRAZOLE SODIUM IV 40 MG VIAL IV PUSH ×2 (09:07→20:32)
[2023-11-10] MEDS: BELLADONNA ALK/PHENOB ELIX 10 ML, MAG HYDROX/ALUMINUM HYD/SIMETH 30 ML, LIDOCAINE HCL 2... PO (11:34)
[2023-11-10 11:46] LABS: Glucose Point of Care 215 mg/dl (65-105)
[2023-11-10 14:00] VITALS: BP 128/64; PULSE 62; RESP 18; TEMP 36.7; O2SAT 100
[2023-11-10 14:24] LABS: BEDSIDEPREGUCG Negative (Negative)
[2023-11-10 16:43] LABS: Glucose Point of Care 182 mg/dl (65-105)
[2023-11-10 19:28] LABS: Glucose Point of Care 223 mg/dl (65-105)
[2023-11-10 21:13] VITALS: BP 125/65; PULSE 64; RESP 13; TEMP 36.7; O2SAT 100
[2023-11-11] MEDS: LACTATED RINGERS 1,000 ML 150 ML IV CONT ×3 (04:32→21:10)
[2023-11-11 05:47] VITALS: BP 138/66; PULSE 60; RESP 12; TEMP 36.8; O2SAT 100
[2023-11-11 06:58] LABS: Haptoglobin 197 mg/dL (43-212)
[2023-11-11 07:42] LABS: Glucose Point of Care 195 mg/dl (65-105)
[2023-11-11] MEDS: POTASSIUM CHLORIDE INJ 40 MEQ in SODIUM CHLORIDE 0.9% IV 500 ML 130 MEQ IVPB (09:33)
[2023-11-11] MEDS: PANTOPRAZOLE SODIUM IV 40 MG VIAL IV PUSH ×2 (09:33→21:07)
[2023-11-11 10:18] LABS: Iron 36 ug/dL (37-170)
--- NOTE | 2023-11-11 10:25 | WPDGICN ---
Assessment and Plan Assessment and plan (1) Epigastric pain: Code(s): R10.13 - Epigastric pain Status: Acute (2) Nausea and vomiting: Qualifiers: Vomiting type: bilious vomiting Qualified Code(s): R11.14 - Bilious vomiting Code(s): R11.2 - Nausea with vomiting, unspecified Status: Acute (3) Microcytic anemia: Code(s): D50.9 - Iron deficiency anemia, unspecified Status: Acute (4) Gastritis: Qualifiers: Gastritis type: unspecified gastritis Chronicity: unspecified Gastritis bleeding: without bleeding Qualified Code(s): K29.70 - Gastritis, unspecified, without bleeding Code(s): K29.70 - Gastritis, unspecified, without bleeding Status: Acute (5) Esophagitis: Code(s): K20.90 - Esophagitis, unspecified without bleeding Status: Acute (6) Abnormal digestive system diagnostic imaging: Code(s): R93.3 - Abnormal findings on diagnostic imaging of other parts of digestive tract Status: Acute Plan 1. Abdominal pain / nausea / vomiting/abnormal imaging digestive- esophagitis and gastritis: Patient has never had an EGD. CT abdomen/pelvis on 11/07/2023 showed mild esophagitis/gastritis which may be contributing to her current symptoms. Pain is sharp, located in epigastric region, and worsened initially with eating but now slightly improved. Nausea and vomiting started yesterday morning and afternoon but none today. Denies dysphagia, odynophagia, heartburn. denies any NSAID or aspirin use prior to admission. DDX: Gastritis, PUD, GERD, functional dyspepsia, H-Pylori. EGD tomorrow NPO after midnight Supportive care with IV fluids, anti-emetics as needed Continue PPI BID Care with NSAIDs further recommendations to follow endoscopy 2. Chronic microcytic anemia: Chronic issue dating back to before 2019. Hemoglobin 8 on admission. Patient reports still having heavy menstrual bleeding which is likely contributing. pulper operator in [place] recommended a hysterectomy for fibroids and heavy menstrual bleeding but patient declined. Lab show HGB 8, HCT 28, MCV 70, platelets 198. B12 and folate normal. Iron panel ordered still pending, if deficient primary care team to correct / supplement Recommend gynecology follow up for heavy menses EGD tomorrow will help rule out upper GI source of bleeding primary care team to continue monitoring H&H and transfuse as needed to keep HGB > 7 if EGD is unremarkable can discuss outpatient colonoscopy during follow-up visit Thank you very much for allowing me to share in the care of this very nice patient. This report may have been done utilizing a voice recognition system. Attempts have been made to correct errors. However, there may be uncorrected grammatical, spelling, and recognition errors present. GI Consult Note Consult date/time: 11/11/23 10:25 Reason for consult: abdominal pain, nausea and vomiting HPI: This is a pleasant 43 year old female with a past medical surgical history of x3, iron deficiency anemia, diabetes, ovarian cyst removal. Patient presented to the emergency room 11/07/2023 with complaints of epigastric pain. GI is being consulted for abdominal pain, nausea and vomiting. The patient was accompanied by her , Juan David Vallejo, during the visit. Control Clerk [employer] services used ( Abhinav #[id number]). The patient admits to mid epigastric pain, nausea and vomiting that started on . The pain is sharp and comes and goes, located in the pit of the stomach. Eating initially made the pain worse but now it is a little better. She had nausea and vomiting yesterday, starting in the morning around 6am and again in the afternoon, but none today. Still has very heavy periods which may be contributing to her chronic anemia. Denies painful swallowing, feeling like food is getting stuck, or heartburn. Appetite has been really low for about a week. She denies unintentional weight
[2023-11-11 10:27] LABS: Percent Iron Saturation 12 % (20-50)
[2023-11-11 11:44] LABS: Glucose Point of Care 205 mg/dl (65-105)
[2023-11-11] MEDS: INSULIN ASPART (*BKC) 100 UNITS/ML SUB-Q (12:02)
[2023-11-11 14:00] VITALS: BP 129/61; PULSE 68; RESP 18; TEMP 36.4; O2SAT 100
--- NOTE | 2023-11-11 15:52 | PM.IMPN ---
Progress Note: A&P Assessment and Plan (1) Hyperglycemia: Code(s): R73.9 - Hyperglycemia, unspecified Status: Acute Assessment and Plan: Hold metformin Moderate sliding scale Hypoglycemia protocol Ordered HbA1c (2) Metrorrhagia: Code(s): N92.1 - Excessive and frequent menstruation with irregular cycle Status: Acute (3) Iron deficiency anemia: Code(s): D50.9 - Iron deficiency anemia, unspecified Status: Acute Assessment and Plan: Possibly due to bleeding from fibroid glass toughening operator consult and appreciate recommendation Received iron infusion on previous admission Today received 1 unit of packed RBC 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 She will need follow up as outpatient to schedule hysteroscopy with D&C. CT scan with exophytic fibroid and left ovarian cysts. Prior u/s with no fibroids seen 1 year ago. If she gets another cycle before work up, we can use oral TXA for 5 days. Once GI work up completed and dc home, will see in office to schedule. (4) Anemia: Code(s): D64.9 - Anemia, unspecified Status: Acute Assessment and Plan: Transfused 1 unit of packed RBC Trend hemoglobin hematocrit Consulted ob.glass toughening operator for fibroids Ordered anemia panel including LDH and haptoglobin vitamin B12 and folate (5) Gastritis: Qualifiers: Chronicity: unspecified Gastritis bleeding: without bleeding Gastritis type: unspecified gastritis Qualified Code(s): K29.70 - Gastritis, unspecified, without bleeding Code(s): K29.70 - Gastritis, unspecified, without bleeding Status: Acute Assessment and Plan: Currently on PPI and GI cocktail Abdomen and pelvis CT shows mild esophagitis/gastritis. Likely cystitis with possible ascending infection on the left. Multiple left ovarian cyst measuring 4.7 cm. 2.6 cm tissue density in the deep pelvis likely representing fibroid Ordered FOBT For EGD tomorrow GI on board (6) Cystitis: Code(s): N30.90 - Cystitis, unspecified without hematuria Status: Acute Assessment and Plan: Reviewed urinalysis Urine culture pansensitive E coli Continue ceftriaxone Abdomen and pelvis CT shows mild esophagitis/gastritis. Likely cystitis with possible ascending infection on the left. Multiple left ovarian cyst measuring 4.7 cm. 2.6 cm tissue density in the deep pelvis likely representing fibroid Plan DVT prophylaxis on SCDs, no AC due to menorrhagia vs Gi bleed Subjective Date/time seen: 11/11/23 15:52 Interval history: Patient comfortable at bedside For EGD tomorrow Review of Systems Review of Systems: All systems reviewed & are unremarkable except as noted in HPI and below Exam Narrative: APPEARANCE: Well appearing, no pain, no distress, well-nourished. HEAD: normocephalic, atraumatic. EYES: PERRLA/EOMI, conjunctivae clear. NOSE: Normal no drainage. NECK: Supple. No adenopathy, no masses. RESPIRATORY: Airway patent, respirations nonlabored. Clear to auscultation bilaterally, no rales, rhonchi, wheezing. CARDIOVASCULAR: Regular rate and rhythm without murmurs rubs or gallops. ABDOMINAL: Epigastric tenderness to palpation MUSCULOSKELETAL: Moves all extremities. Strength/ROM intact, No edema, No calf tenderness. NEURO: Alert. Cranial nerves II through XII intact. Grossly intact SKIN: Warm, dry. Normal Color Objective Data Vital Signs Vital Signs: Vital Signs - 24 hr 11/10/23 21:13 11/11/23 05:47 11/11/23 09:25 Temperature 98.1 F 98.3 F Pulse Rate 64 60 Respiratory Rate 13 12 Blood Pressure 125/65 138/66 Pulse Oximetry 100 100 Oxygen Delivery Room Air Intake/Output Intake/Output: Intake & Output 11/08/23 11/09/23 11/10/23 11/11/23 23:59 23:59 23:59 23:59 Intake Total 1518 2225 4226 3950 Balance 1518 2225 4226 3950 Meds/Results Medications: Active Medications Generic Name Dose Route Start Last Admin Trade Name Freq PRN Reason Stop Dose Admin
[2023-11-11 17:15] LABS: Glucose Point of Care 188 mg/dl (65-105)
[2023-11-11] MEDS: polyethylene glycoL 3350 238 GM BOTTLE PO (17:32)
[2023-11-11] MEDS: BISACODYL 5 MG TABLET EC 20 MG PO (17:32)
[2023-11-11 20:55] VITALS: BP 133/68; PULSE 72; RESP 18; TEMP 36.2; O2SAT 100
[2023-11-11 21:49] LABS: Glucose Point of Care 242 mg/dl (65-105)
[2023-11-11] MEDS: ONDANSETRON INJ 4 MG/2 ML VIAL IV PUSH (22:16)
[2023-11-11] MEDS: HYDROmorphone HCL INJ (*CRX) 1 MG/ML SYR IV PUSH (22:16)
[2023-11-12] MEDS: MAGNESIUM CITRATE 300 ML BTL PO (03:00)
[2023-11-12] MEDS: LACTATED RINGERS 1,000 ML 150 ML IV CONT ×3 (04:00→11:12)
[2023-11-12 05:38] VITALS: BP 154/76; PULSE 61; RESP 16; TEMP 36.6; O2SAT 100
[2023-11-12 07:36] LABS: Glucose Point of Care 195 mg/dl (65-105)
[2023-11-12 07:40] LABS: Alanine Aminotransferase 13 U/L (6-35); Albumin Level 3.2 g/dL (3.5-5.1); Alkaline Phosphatase 87 U/L (38-126); Anion Gap 7 mmol/L (4-12); Aspartate Amino Transferase 15 U/L (14-36); Bilirubin,Total 0.5 mg/dL (0.2-1.3); Calcium 8.3 mg/dL (8.4-10.2); Carbon Dioxide 25 mmol/L (22-30); Chloride 104 mmol/L (98-107); Estimated Glomerular Filt Rate > 60; Glucose 193 mg/dL (65-110); Magnesium 1.9 mg/dL (1.6-2.3); Potassium 3.5 mmol/L (3.4-5.0); Sodium 136 mmol/L (137-145)
[2023-11-12 08:05] LABS: Blood Urea Nitrogen < 2 mg/dL (7-17)
[2023-11-12] MEDS: IRON SUCROSE COMPLEX 400 MG, IRON SUCROSE COMPLEX 100 MG in SODIUM CHLORIDE 0.9% IV 250 ML 78.57 MG IVPB (08:53)
[2023-11-12] MEDS: PANTOPRAZOLE SODIUM IV 40 MG VIAL IV PUSH (08:53)
[2023-11-12 09:35] LABS: Basophils Percent Auto 0.3 % (0.2-1.2); Eosinophils Absolute Auto 0.1 K/mm3 (0-0.3); Eosinophils Percent Auto 1.6 % (0-4.4); Hematocrit 26.5 % (37.0-47.0); Hemoglobin 7.5 g/dL (12.0-15.0); Immature Granulocyte Absolute 0.06 K/mm3 (0.00-0.031); Immature Granulocyte Percent A 1.6 % (0-0.5); Immature Platelet Fraction Pct 10.1 % (0.9-11.2); Lymphocytes Absolute Auto 0.96 K/mm3 (0.9-3.2); Lymphocytes Percent Auto 25.5 % (18.3-44.2); Mean Corpuscular HGB Conc 28.3 g/dl (32-36); Mean Corpuscular Hemoglobin 20.1 pg (26-34); Mean Corpuscular Volume 70.9 fl (80-100); Monocytes Absolute Auto 0.3 K/mm3 (0.1-0.6); Monocytes Percent Auto 6.6 % (2.6-8.5); Neutrophils Absolute Auto 2.4 K/mm3 (1.3-6.7); Neutrophils Percent Auto 64.4 % (45.5-73.1); Platelet Count Result 170 k/mm3 (150-375); Red Blood Count 3.74 M/mm3 (4.2-5.4); Red Cell Distribution Width 23.9 % (11.5-14.5); White Blood Count 3.8 K/mm3 (4.5-10.0)
[2023-11-12 10:20] LABS: Anisocytosis 2+; Hypochromasia 2+; Microcytosis 1+ (NORMAL); Ovalocytes 1+; Platelet Estimate Adequate (Adequate); Schistocytes None Seen
--- NOTE | 2023-11-12 10:20 | PC.NURSE ---
Patient off floor to GI lab. Report given to Prieto BAZAN.
[2023-11-12 10:43] VITALS: BP 144/76; PULSE 63; RESP 20; TEMP 36; O2SAT 100
[2023-11-12 10:46] LABS: Glucose Point of Care 169 mg/dl (65-105)
--- NOTE | 2023-11-12 10:51 | WPDANESEPPF ---
Anes - Initial Pre Proc Eval Procedure: Operation Date: 11/12/23 11:00 Proposed Procedures p Esophagogastroduodenoscopy & Colonoscopy - Kang Finn MD Date/Time: 11/12/23 10:51 Surgeon: Nisha Alvarez DO Pre Op Diagnosis: UTI, Gastritis, Elevated blood glucose Patient Data Age: 43 Gender: F Height: Weight: Last Vital Signs Temp 36.0 C L 11/12/23 10:43 Pulse 63 11/12/23 10:43 Resp 20 11/12/23 10:43 BP 144/76 H 11/12/23 10:43 Pulse Ox 100 11/12/23 10:43 O2 Del Method Room Air 11/12/23 10:43 Allergies Allergy/AdvReac Type Severity Reaction Status Date / Time No Known Allergies Allergy Verified 06/07/22 10:58 Home Medications Medication Instructions Recorded Confirmed Type cefdinir 300 mg capsule 300 mg PO Q12H 11/08/23 11/08/23 History Laboratory Tests 11/11/23 11/11/23 11/11/23 09:08 11:34 16:35 WBC RBC Hgb Hct MCV MCH MCHC RDW Plt Count MPV Immature Gran % (Auto) Neut % (Auto) Lymph % (Auto) [place] % (Auto) Eos % (Auto) Baso % (Auto) Lymph # (Auto) [place] # (Auto) Eos # (Auto) Baso # (Auto) Abs Immat Gran (auto) Absolute Neuts (auto) Absolute Nucleated RBC Nucleated RBC % Platelet Estimate % Immature Plt Fraction Hypochromasia Anisocytosis Microcytosis Ovalocytes Schistocytes Sodium Potassium Chloride Carbon Dioxide Anion Gap BUN Creatinine Estim Creat Clear Calc Estimated GFR Glucose POC Capillary Glucose 205 H mg/dl 188 H mg/dl (65-105) (65-105) Calcium Magnesium Ferritin 99.50 ng/mL (6.24-137) Total Bilirubin AST ALT Alkaline Phosphatase Total Protein Albumin 11/11/23 11/12/23 11/12/23 21:47 06:35 07:26 WBC RBC Hgb Hct MCV MCH MCHC RDW Plt Count MPV Immature Gran % (Auto) Neut % (Auto) Lymph % (Auto) [place] % (Auto) Eos % (Auto) Baso % (Auto) Lymph # (Auto) [place] # (Auto) Eos # (Auto) Baso # (Auto) Abs Immat Gran (auto) Absolute Neuts (auto) Absolute Nucleated RBC Nucleated RBC % Platelet Estimate % Immature Plt Fraction Hypochromasia Anisocytosis Microcytosis Ovalocytes Schistocytes Sodium 136 L mmol/L (137-145) Potassium 3.5 mmol/L (3.4-5.0) Chloride 104 mmol/L (98-107) Carbon Dioxide 25 mmol/L (22-30) Anion Gap 7 mmol/L (4-12) BUN < 2 L mg/dL (7-17) Creatinine 0.50 L mg/dL (0.7-1.0) Estim Creat Clear Calc Not Reportable Estimated GFR > 60 (59 - ) Glucose 193 H mg/dL (65-110) POC Capillary Glucose 242 H mg/dl 195 H mg/dl (65-105) (65-105) Calcium 8.3 L mg/dL (8.4-10.2) Magnesium 1.9 mg/dL (1.6-2.3) Ferritin Total Bilirubin 0.5 mg/dL (0.2-1.3) AST 15 U/L (14-36) ALT 13 U/L (6-35) Alkaline Phosphatase 87 U/L (38-126) Total Protein 6.0 L g/dL (6.3-8.2) Albumin 3.2 L g/dL (3.5-5.1) 11/12/23 11/12/23 09:05 10:37
--- NOTE | 2023-11-12 11:33 | SUR.OPER ---
egd [id number] colonoscopy start 1138
[2023-11-12] MEDS: SIMETHICONE ORAL SUSPENSION 20 MG/0.3 ML 30 ML BOTTLE 0.6 ML IRRIGATION (11:43)
[2023-11-12 11:50] VITALS: BP 97/54; PULSE 60; RESP 15; O2SAT 100
[2023-11-12 12:00] VITALS: BP 115/70; PULSE 59; RESP 16; O2SAT 100
[2023-11-12 12:02] LABS: Glucose Point of Care 178 mg/dl (65-105)
[2023-11-12 12:08] VITALS: BP 150/83; PULSE 66; RESP 18; O2SAT 100
--- NOTE | 2023-11-12 12:13 | PM.IMPN ---
Progress Note: A&P Assessment and Plan (1) Hyperglycemia: Code(s): R73.9 - Hyperglycemia, unspecified Status: Acute Assessment and Plan: Hold metformin Moderate sliding scale Hypoglycemia protocol Ordered HbA1c (2) Metrorrhagia: Code(s): N92.1 - Excessive and frequent menstruation with irregular cycle Status: Acute (3) Iron deficiency anemia: Code(s): D50.9 - Iron deficiency anemia, unspecified Status: Acute Assessment and Plan: Possibly due to bleeding from fibroid chief dietitian consult and appreciate recommendation Received iron infusion on previous admission Today received 1 unit of packed 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 She will need follow up as outpatient to schedule hysteroscopy with D&C. CT scan with exophytic fibroid and left ovarian cysts. Prior u/s with no fibroids seen 1 year ago. If she gets another cycle before work up, we can use oral TXA for 5 days. Once GI work up completed and dc home, will see in office to schedule. (4) Anemia: Code(s): D64.9 - Anemia, unspecified Status: Acute Assessment and Plan: Transfused 1 unit of packed RBC Trend hemoglobin hematocrit Consulted ob.chief dietitian for fibroids Ordered anemia panel including LDH and haptoglobin vitamin B12 and folate (5) Gastritis: Qualifiers: Chronicity: unspecified Gastritis bleeding: without bleeding Gastritis type: unspecified gastritis Qualified Code(s): K29.70 - Gastritis, unspecified, without bleeding Code(s): K29.70 - Gastritis, unspecified, without bleeding Status: Acute Assessment and Plan: Currently on PPI and GI cocktail Abdomen and pelvis CT shows mild esophagitis/gastritis. Likely cystitis with possible ascending infection on the left. Multiple left ovarian cyst measuring 4.7 cm. 2.6 cm tissue density in the deep pelvis likely representing fibroid Ordered FOBT For EGD tomorrow GI on board (6) Cystitis: Code(s): N30.90 - Cystitis, unspecified without hematuria Status: Acute Assessment and Plan: Reviewed urinalysis Urine culture pansensitive E coli Continue ceftriaxone Abdomen and pelvis CT shows mild esophagitis/gastritis. Likely cystitis with possible ascending infection on the left. Multiple left ovarian cyst measuring 4.7 cm. 2.6 cm tissue density in the deep pelvis likely representing fibroid Plan DVT prophylaxis on SCDs, no AC due to menorrhagia vs Gi bleed Subjective Date/time seen: 11/12/23 12:13 Interval history: Patient comfortable at bedside For EGD tomorrow Review of Systems Review of Systems: All systems reviewed & are unremarkable except as noted in HPI and below Exam Narrative: APPEARANCE: Well appearing, no pain, no distress, well-nourished. HEAD: normocephalic, atraumatic. EYES: PERRLA/EOMI, conjunctivae clear. NOSE: Normal no drainage. NECK: Supple. No adenopathy, no masses. RESPIRATORY: Airway patent, respirations nonlabored. Clear to auscultation bilaterally, no rales, rhonchi, wheezing. CARDIOVASCULAR: Regular rate and rhythm without murmurs rubs or gallops. ABDOMINAL: Epigastric tenderness to palpation MUSCULOSKELETAL: Moves all extremities. Strength/ROM intact, No edema, No calf tenderness. NEURO: Alert. Cranial nerves II through XII intact. Grossly intact SKIN: Warm, dry. Normal Color Objective Data Vital Signs Vital Signs: Vital Signs - 24 hr 11/11/23 14:00 11/11/23 20:55 11/12/23 05:38 Temperature 97.6 F 97.2 F L 97.8 F Pulse Rate 68 72 61 Respiratory Rate 18 18 16 Blood Pressure 129/61 133/68 154/76 H Pulse Oximetry 100 100 100 Oxygen Delivery 11/12/23 10:43 11/12/23 08:50 11/12/23 11:50 Temperature 96.8 F L Pulse Rate 63 60 Respiratory Rate 20 15 Blood Pressure 144/76 H 97/54 L Pulse Oximetry 100 100 Oxygen Delivery Room Air Room Air Room Air 11/12/23 12:00 11/12/23 12:08 Temperature Pulse Rate 59 L 66 Respiratory Rat
--- NOTE | 2023-11-12 12:22 | PM.DS ---
DS: Admitting Diagnosis Discharge Date 11/12/2023 Admitting Diagnosis abd pain DS: Discharge Diagnosis Discharge Diagnosis (1) Gastritis: Qualifiers: Chronicity: unspecified Gastritis bleeding: without bleeding Gastritis type: unspecified gastritis Qualified Code(s): K29.70 - Gastritis, unspecified, without bleeding Code(s): K29.70 - Gastritis, unspecified, without bleeding Status: Acute (2) Menorrhagia: Code(s): N92.0 - Excessive and frequent menstruation with regular cycle Status: Acute (3) Iron deficiency anemia: Code(s): D50.9 - Iron deficiency anemia, unspecified Status: Acute DS: Summary Hospital Course Hospital Course: 42-year-old mainly Cuban-speaking female who presented to the emergency department via private vehicle for evaluation of abdomen pain . Patient reports the abdominal pain started 2 days ago. Patient denies any diarrhea or constipation or bloody stool. Initially patient thought the pain is due to some stomach bug but later she was not able to tolerate the pain which was associated with nausea and vomiting. Today morning her hemoglobin was 6.4 and initiated 1U PRBC. The patient has a history of heavy periods dating back many years and had previously been on iron however it does not sound as though she has been taking that on a routine basis. She was previously seen by a process operator in [place] and was offered hysterectomy however she declined. Patient reports of having regular periods with heavy bleeding lasting 5-6 days. She denies epistaxis, hematemesis, melena, hematochezia, and hematuria. She denies current vaginal bleeding. No blurry vision, polydipsia, or polyuria. No dysuria. No vaginal discharge. No exertional chest pain or shortness of breath. CT abdomen and pelvis showed multiple left ovarian cyst measuring up to 4.7 cm, 2.7 cm tissue density in the deep pelvis presenting is aphasic fibroid. Languages And Literature Instructor was consulted to evaluate the patient and wound follow-up outpatient for possible hysterectomy. GI was consulted patient underwent EGD and colonoscopy this morning no evidence of bleeding. However showed small internal hemorrhoids and mild gastritis appear Iron saturation is 12 patient was given 500 mg of IV iron. Discharge in p.o. IM x1 month. Will continue follow-up with the PCP. F/u CBC on 11/14. BG stable. Continue other home meds and f/u with PCP in 3-5 days, GI and CHILD & ADOLESCENT PSYCHIATRIST as instructed. Assessment and Plan (1) Hyperglycemia: Code(s): R73.9 - Hyperglycemia, unspecified Status: Acute Assessment and Plan: restart home insulin and follow up with for med adjustment A1c 10.6 (2) Metrorrhagia: Code(s): N92.1 - Excessive and frequent menstruation with irregular cycle Status: Acute (3) Iron deficiency anemia: Code(s): D50.9 - Iron deficiency anemia, unspecified Status: Acute Assessment and Plan: Possibly due to bleeding from fibroid [place] seamer consult and appreciate recommendation Received iron infusion on previous admission Today received 1 unit of packed RBC Isat 12, received another 500mg IV iron 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 She will need follow up as outpatient to schedule hysteroscopy with D&C. CT scan with exophytic fibroid and left ovarian cysts. Prior u/s with no fibroids seen 1 year ago. If she gets another cycle before work up, we can use oral TXA for 5 days. Once GI work up completed and dc home, will see in office to schedule. (4) Anemia: Code(s): D64.9 - Anemia, unspecified Status: Acute Assessment and Plan: Transfused 1 unit of packed RBC Trend hemoglobin hematocrit Consulted ob.[place] seamer for fibroids Ordered anemia panel including LDH and haptoglobin vitamin B12 and folate (5) Gastritis: Qualifiers: Chronicity: unspecified Gastritis bleeding: without bleeding Gastritis type: unspecified gastritis Qualified Code(s): K29.70 - Gastritis, un
[2023-11-12 14:00] VITALS: BP 125/63; PULSE 63; RESP 18; TEMP 36.3; O2SAT 100
[2023-11-12 17:09] LABS: Glucose Point of Care 182 mg/dl (65-105)
[2023-11-12] MEDS: INFLUENZA TRIVALENT VACCINE 45 MCG/0.5 ML SYRINGE IM (17:30)
== END 2023-11-12 18:00 | disposition home or self-care (01) | DRG 241 ==
LOC: ANHED 11-08 01:04 → ANH3MEDSUR 11-08 02:41
PROVIDERS: General Practice; Internal Medicine Gastroenterology; Physician Assistant; Admitting Provider Internal Medicine; Emergency Provider Emergency Medicine; Visit Provider Internal Medicine
PROC: 0DJ08ZZ Inspection of Upper Intestinal Tract, Via Natural or Artificial Opening Endoscopic (ICD-10-PCS; CPT 43235; principal; 2023-11-12 11:00)
DX: K29.30 Chronic superficial gastritis without bleeding (principal); K64.8 Other hemorrhoids; D50.9 Iron deficiency anemia, unspecified; D62 Acute posthemorrhagic anemia; N92.0 Excessive and frequent menstruation with regular cycle; N30.90 Cystitis, unspecified without hematuria; B96.20 Unspecified Escherichia coli [E. coli] as the cause of diseases classified elsewhere; R73.9 Hyperglycemia, unspecified; K20.90 Esophagitis, unspecified without bleeding; N83.202 Unspecified ovarian cyst, left side; D25.9 Leiomyoma of uterus, unspecified; Z23 Encounter for immunization
CPT/HCPCS: 36415; 36430; 74177; 80048; 80053; 81001; 81025; 82010; 82607; 82728; 82746; 82948; 83010; 83036; 83540; 83550; 83615; 83690; 83735; 85014; 85018; 85025; 85027; 85055; 86850; 86900; 86901; 86923; 87077; 87086; 87088; 87186; 88305; 88342; 90471; 90656; 96361; 96365; 96374; 96375; 99285; A9270; G0008; J0696; J1170; J1171; J1596; J1756; J1815; J2003; J2405; J2470; J2550; J2704; J3480; J7030; J7040; J7050; J7120; P9016; Q9967